=== PATIENT | female | born 1950 | race Caucasian/White ===

== ENCOUNTER 2022-07-04 08:17 | Emergency (ER) | payer MEDICARE, MEDICAID ==
[~2022-07-04] VITALS: Ht 157.5 cm; Wt 91.6 kg
[2022-07-04 08:30] VITALS: BP 156/111
[2022-07-04] MEDS ORDERED: ACETAMINOPHEN 500 MG TAB PO ONE (09:00)
[2022-07-04] MEDS ORDERED: PHENAZOPYRIDINE HCL 100 MG TAB PO ONE (09:00)
[2022-07-04 11:12] LABS: Urine Bacteria NONE SEEN /hpf (None Seen); Urine Blood Negative /uL (Negative); Urine Mucus FEW (None Seen); Urine Specific Gravity 1.016 (1.001-1.035); Urine WBC 177 /hpf (0 - 5); Urine WBC Clumps PRESENT /hpf (None Seen)
[2022-07-04] MEDS ORDERED: BACDST PO (11:23)
[2022-07-04] MEDS ORDERED: PHEN-1044 PO (11:23)
[2022-07-04] MEDS ORDERED: IBUP600T27 PO (11:23)
== END 2022-07-04 11:47 | disposition home or self-care (01) ==
LOC: ER 08:23
DX: N39.0 Urinary tract infection, site not specified (principal)
CPT/HCPCS: 74176; 81001